=== PATIENT | male | born 1970 | race Caucasian/White ===

== ENCOUNTER → 2019-06-14 | Outpatient (CLI) | payer OTHER ==
[~2019-06-14] MED LIST: ACET1TAB15 PO; ACET1TAB16 PO; ADV250INH INH; ALBU17IN INH; ALEV220T26 PO; CENT1TAB2 PO; CLEO300C2 PO; DEXA2TA PO; DEXA5TA PO; FLUT1SPR2; LEVO500T PO; NAPR-885 PO; VENTAER INH; WELL100T PO; ZYBA150T PO; naproxen PO
--- NOTE | 2019-06-14 18:38 | ECGEPIP ---
[facility] Test Date: 2019-06-14 Pat Name: ZENON ORTEGA Department: Room: - Gender: Male [employer]: HAIM : 1970 Requested By: Rene Allan Order Number: [id number] Reading MD: Kevin Walden Measurements Intervals [place] Rate: 72 P: 50 OR: 163 QRS: 48 QRSD: 77 T: 15 QT: 353 QTc: 389 Interpretive Statements SINUS RHYTHM NO PRIOR Electronically Signed on 06-14-2019 18:38:15 EST by Kevin Walden
== END ==
LOC: M EKG 15:22
PROVIDERS: ATTEND Anesthesiology
DX: Z01.818 Encounter for other preprocedural examination (principal); F17.200 Nicotine dependence, unspecified, uncomplicated; G47.30 Sleep apnea, unspecified

== ENCOUNTER 2019-06-21 11:48 | Day surgery (SDC) | payer OTHER ==
[~2019-06-21] VITALS: Ht 172.7 cm; Wt 91.4 kg
[~2019-06-21 11:48] MED LIST changes: +LR 1,000 ML IV ONE; +ceFAZolin SOD 1 GM in D5W MINI-BAG PLUS 50 ML IV ONE
[2019-06-21] MEDS ORDERED: LIDOCAINE 2% INJ 100 MG/5 ML SDV (FOR ANES.) As Ordered ONE (12:35)
[2019-06-21] MEDS ORDERED: dexameTHASONE 4 MG/ML 1ML VIAL (J1100) As Ordered ONE (12:36)
[2019-06-21] MEDS ORDERED: MIDAZOLAM INJ 2 MG/2 ML VIAL (J2250) As Ordered ONE (12:36)
[2019-06-21] MEDS ORDERED: ONDANSETRON 4MG/2ML VIAL (J2405) As Ordered ONE (12:36)
[2019-06-21] MEDS ORDERED: fentaNYL 100 MCG/2 ML INJECTION (J3010) As Ordered ONE (12:36)
[2019-06-21] MEDS ORDERED: propofoL 200 MG/20 ML VIAL As Ordered ONE (14:29)
[2019-06-21] MEDS ORDERED: BUPIVACAINE/EPIN 0.25% 30 ML VIAL As Ordered ONE (14:32)
[2019-06-21] MEDS ORDERED: LevoFLOXacin(LEVAQUIN)500 MG/100 ML BAG (J1956) As Ordered ONE (14:45)
[2019-06-21] MEDS ORDERED: LevoFLOXacin IV 500 MG in IV 1 EA IV ONE (15:00)
[2019-06-21] MEDS ORDERED: LR 1,000 ML IV SCH (16:15)
[2019-06-21 16:27] VITALS: BP 114/56
[2019-06-21] MEDS ORDERED: KETOROLAC 30 MG/ML VIAL (J1885) IV SCH (17:00)
--- NOTE | 2019-07-11 06:29 | RO ---
DATE OF PROCEDURE: 06/21/2019 PREOPERATIVE DIAGNOSIS: Lipoma left chest wall (trunk) 5 cm. POSTOPERATIVE DIAGNOSIS: Lipoma left chest wall (trunk) 5 cm. PROCEDURE: Excision of lipoma left chest wall. SURGEON: Dr. Roberto Azul COMMODITY LEAD: ANESTHESIA: Local with sedation. ESTIMATED BLOOD LOSS: Minimal. FLUIDS: Crystalloid. BRIEF PROCEDURE SUMMARY: The patient was brought to the operating room and was given IV sedation, was placed in the right lateral decubitus position and was prepped and draped in the usual sterile fashion. After adequate sedation was attained, local Marcaine with epinephrine was infiltrated into the area surrounding the lipoma. An incision was made longitudinally over the lipoma itself and a combination of blunt and sharp dissection used to dissect down to the lipoma itself and the lipoma was removed. This was a simple lipoma and did not appear to be a multilobulated lipoma. It did not appear to be an intramuscular lipoma. The lesion was removed in its entirety and the deep subcutaneous tissue was closed with #2-0 Vicryl, 3-0 Vicryl was used to approximate dermis and #4-0 Vicryl was used to approximate the skin. Steri-Strips and a dry sterile dressing was applied. The patient was awakened from his sedation and brought to the recovery room awake, alert and hemodynamically stable. Sponge and needle counts correct x2.
== END 2019-06-21 16:27 | disposition home or self-care (01) ==
LOC: M SDC 11:48
PROVIDERS: ATTEND Surgery
DX: D17.1 Benign lipomatous neoplasm of skin and subcutaneous tissue of trunk (principal); J45.909 Unspecified asthma, uncomplicated; F41.9 Anxiety disorder, unspecified; G47.30 Sleep apnea, unspecified; Z88.0 Allergy status to penicillin; Z79.51 Long term (current) use of inhaled steroids; Z79.899 Other long term (current) drug therapy; F17.218 Nicotine dependence, cigarettes, with other nicotine-induced disorders
CPT/HCPCS: 11406; 88304; J1100; J1956; J2250; J2405; J3010

== ENCOUNTER → 2021-12-08 | Outpatient (CLI) | payer OTHER ==
[~2021-12-08] MED LIST changes: +ATOR1TAB19 PO; +BUSP15TA47 PO; +GLIM2TAB4 PO; +JARD1TAB3 PO; +LORA-674 PO; -LR 1,000 ML IV ONE; +METF-839 PO; +NEUR300C PO; +ZOLO100T PO; -ceFAZolin SOD 1 GM in D5W MINI-BAG PLUS 50 ML IV ONE
== END ==
LOC: M LABSMTC 09:52
PROVIDERS: ATTEND Anesthesiology
DX: Z01.812 Encounter for preprocedural laboratory examination (principal); Z20.822 Contact with and (suspected) exposure to COVID-19

== ENCOUNTER 2021-12-11 12:00 | Day surgery (SDC) | payer OTHER ==
[~2021-12-11] VITALS: Ht 172.7 cm; Wt 90.6 kg
[~2021-12-11 12:00] MED LIST changes: +NS 1,000 ML IV ONE
[2021-12-11] MEDS ORDERED: propofoL 200 MG/20 ML VIAL As Ordered ONE (14:33)
[2021-12-11] MEDS ORDERED: LIDOCAINE 2% 100MG/5ML SDV (FOR ANES.) As Ordered ONE (14:33)
[2021-12-11 15:00] VITALS: BP 114/62
== END 2021-12-11 15:08 | disposition home or self-care (01) ==
LOC: M OPP 12:00
PROVIDERS: ATTEND Internal Medicine Gastroenterology
DX: Z12.11 Encounter for screening for malignant neoplasm of colon (principal); K64.0 First degree hemorrhoids; K57.30 Diverticulosis of large intestine without perforation or abscess without bleeding; E78.5 Hyperlipidemia, unspecified; E11.9 Type 2 diabetes mellitus without complications; M19.90 Unspecified osteoarthritis, unspecified site; F32.A Depression, unspecified; J45.909 Unspecified asthma, uncomplicated; G47.30 Sleep apnea, unspecified; F17.210 Nicotine dependence, cigarettes, uncomplicated; Z88.0 Allergy status to penicillin; Z79.84 Long term (current) use of oral hypoglycemic drugs; Z79.899 Other long term (current) drug therapy